=== PATIENT | female | born 1965 | race Caucasian/White ===

== ENCOUNTER 2021-11-03 23:23 | Emergency (ER) | payer MEDICAID ==
[~2021-11-03] VITALS: Ht 142.2 cm; Wt 77.0 kg
[2021-11-04] MEDS ORDERED: TETANUS, DIPHTHERIA, PERTUSSIS VAC/PF 0.5ML (>10YR OLD) IM ONE (00:15)
[2021-11-04 01:33] LABS: BASOPHILS % 0.9 % (0.0-2.0); EOSINOPHILS % 1.5 % (0.0-5.0); HEMATOCRIT. 41.1 % (36.0-48.0); HEMOGLOBIN. 14.2 g/dL (12.0-16.0); LYMPHOCYTES % 17.4 % (20.0-50.0); MEAN CORPUSCULAR HEMOGLOBIN 30.3 pg (28.0-32.0); MEAN CORPUSCULAR VOLUME 87.6 fL (81.0-99.0); MEAN PLATELET VOLUME 9.2 fl (7.4-10.4); MONOCYTES % 8.2 % (2.0-8.0); PLATELET 224 x1000/uL (130-400); RED BLOOD CELL COUNT 4.69 mill/uL (4.2-5.4); RED CELL DISTRIBUTION WIDTH 13.1 % (11.6-14.6)
[2021-11-04 01:40] LABS: CHLORIDE 109 mEq/L (98-107)
[2021-11-04] MEDS ORDERED: IBUPROFEN 400MG TABLET PO ONE (02:45)
[2021-11-04] MEDS ORDERED: ACETAMINOPHEN 325MG TABLET PO ONE (02:45)
[2021-11-04] MEDS ORDERED: TOPUD MT (02:58)
[2021-11-04 03:08] VITALS: BP 142/74
== END 2021-11-04 03:14 | disposition home or self-care (01) ==
LOC: ER 23:23
DX: S20.319A Abrasion of unspecified front wall of thorax, initial encounter (principal); S80.11XA Contusion of right lower leg, initial encounter; M62.838 Other muscle spasm; I45.10 Unspecified right bundle-branch block; V49.49XA Driver injured in collision with other motor vehicles in traffic accident, initial encounter; Y93.89 Activity, other specified; Y92.488 Other paved roadways as the place of occurrence of the external cause
CPT/HCPCS: 36415; 71045; 73590; 80053; 84484; 85025; 93005; 99285